=== PATIENT | female | born 2000 | race Caucasian/White ===

== ENCOUNTER 2022-07-01 15:19 | Inpatient (IN) | payer OTHER, MEDICAID, SELFPAY ==
[2022-07-01 14:00] VITALS: BP 118/78; PULSE 97; RESP 18; TEMP 36.9; O2SAT 99
[2022-07-01 15:43] VITALS: BMI 33.3
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
[2022-07-01] MEDS: OLANZapine 5 mg ODT PO (16:49)
--- NOTE | 2022-07-01 16:49 | PC.NURSE ---
PRN ZYPREXA ZYDIS 5 MG GIVEN PO PER PT C/O STATED ANXIETY/AGITATION...NEW ADMIT, WITHDRAWN
[2022-07-01] MEDS: nicotine 2 mg Gum BUCCAL (18:07)
[2022-07-01] MEDS: acetaminophen 325 mg Tablet 650 MG PO (18:39)
[2022-07-01 19:55] VITALS: BP 113/70; PULSE 88; RESP 15; TEMP 36.6; O2SAT 99
[2022-07-01] MEDS: BuSPIRONE 10 mg Tablet PO (20:54)
[2022-07-02 05:47] VITALS: BP 103/66; PULSE 83; RESP 16; TEMP 36.6; O2SAT 96
[2022-07-02] MEDS: nicotine 21 mg Patch 1 PATCH TRANSDERMA (08:32)
[2022-07-02] MEDS: topiramate 100 mg Tablet PO (08:34)
[2022-07-02] MEDS: pantoprazole DR 40 mg Tablet PO (08:34)
[2022-07-02] MEDS: ARIPiprazole 10 mg Tablet 15 MG PO (08:34)
[2022-07-02] MEDS: fluoxetine 20 mg Capsule 40 MG PO (08:34)
[2022-07-02] MEDS: cetirizine 10 mg Tablet PO (08:34)
[2022-07-02] MEDS: BuSPIRONE 10 mg Tablet PO ×3 (08:34→21:36)
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
[2022-07-02] MEDS: fluoxetine 20 mg Capsule PO (12:55)
[2022-07-02 14:00] VITALS: BP 120/71; PULSE 96; RESP 18; TEMP 36.6; O2SAT 97
[2022-07-02] MEDS: acetaminophen 325 mg Tablet 650 MG PO (15:08)
[2022-07-02] MEDS: blistex lip oint 7 gm Tube 1 APPLIC TOPICAL (16:34)
[2022-07-02] MEDS: hyDROXYzine 25 mg Capsule 50 MG PO (16:55)
--- NOTE | 2022-07-02 16:56 | PC.NURSE ---
PRN VISTARIL 50 MG GIVEN PO PER PT C/O STATED ANXIETY, ALTHOUGH PT IS UP SMILING AND CONVERSING IN A CALM MANNER WITH STAFF
[2022-07-02 19:45] VITALS: BP 118/84; PULSE 102; RESP 18; TEMP 36.8; O2SAT 98
[2022-07-02] MEDS: neomycin-poly-bacitracin oint 28 gm 1 APPLIC TOPICAL (22:44)
[2022-07-03 06:00] VITALS: BP 124/81; PULSE 97; RESP 16; TEMP 36.6; O2SAT 98
--- NOTE | 2022-07-03 09:45 | PC.NURSE ---
UP IN ROOM. DENIES HI AND AVH AT THIS TIME. PT CONTINUES TO ENDORSE SUICIADAL THOUGHTS THAT ARE PASSING IN NATURE WTIH NO PLAN. PT WAS CONTRACTED FOR SAFETY. DENIES PAIN. CONTINUES TO REPORT ANXIETY. MED NURSE INFORMED TO GIVE ZYDIS. ALL QUESTIONS ANSWERED AND SUPPORT VOICED.
[2022-07-03] MEDS: ARIPiprazole 10 mg Tablet 15 MG PO (10:01)
[2022-07-03] MEDS: OLANZapine 5 mg ODT PO ×2 (10:02→13:50)
[2022-07-03] MEDS: topiramate 100 mg Tablet PO (10:02)
[2022-07-03] MEDS: fluoxetine 20 mg Capsule 60 MG PO (10:03)
[2022-07-03] MEDS: pantoprazole DR 40 mg Tablet PO (10:03)
[2022-07-03] MEDS: cetirizine 10 mg Tablet PO (10:03)
[2022-07-03] MEDS: BuSPIRONE 10 mg Tablet PO ×3 (10:04→20:18)
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
--- NOTE | 2022-07-03 11:24 | PC.NURSE ---
NEW ORDER NEW ORDERS RECEIVED TO INCREASE ABILIFY TO 20 MG PO DAILY. ORDERS PLACED PT WAS EDUCATED ON DOSE INCREASE. PT VERBALIZES UNDERSTANDING.
[2022-07-03] MEDS: acetaminophen 325 mg Tablet 650 MG PO (12:00)
[2022-07-03] MEDS: hyDROXYzine 25 mg Capsule 50 MG PO (13:50)
[2022-07-03 14:00] VITALS: BP 134/93; PULSE 102; RESP 18; TEMP 36.8; O2SAT 98
[2022-07-03] MEDS: nicotine 2 mg Gum BUCCAL (15:34)
[2022-07-03 22:00] VITALS: RESP 17
[2022-07-04 06:00] VITALS: BP 112/80; PULSE 122; RESP 16; O2SAT 98
[2022-07-04] MEDS: nicotine 4 mg lozenge MUCOUS MEM ×4 (06:29→19:06)
[2022-07-04] MEDS: fluoxetine 20 mg Capsule 60 MG PO (09:42)
[2022-07-04] MEDS: ARIPiprazole 10 mg Tablet 20 MG PO (09:42)
[2022-07-04] MEDS: BuSPIRONE 10 mg Tablet PO ×3 (09:42→19:56)
[2022-07-04] MEDS: acetaminophen 325 mg Tablet 650 MG PO (09:42)
[2022-07-04] MEDS: cetirizine 10 mg Tablet PO (09:43)
[2022-07-04] MEDS: pantoprazole DR 40 mg Tablet PO (09:43)
[2022-07-04] MEDS: topiramate 100 mg Tablet PO (09:43)
[2022-07-04 14:00] VITALS: BP 113/81; PULSE 107; RESP 17; TEMP 36.7; O2SAT 97
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
[2022-07-04] MEDS: nicotine 2 mg Gum BUCCAL (15:15)
[2022-07-04] MEDS: OLANZapine 5 mg ODT PO (15:21)
[2022-07-04] MEDS: hyDROXYzine 25 mg Capsule 50 MG PO (15:22)
[2022-07-04 20:22] VITALS: BP 127/83; PULSE 98; RESP 18; TEMP 36.6; O2SAT 97
[2022-07-05] MEDS: nicotine 4 mg lozenge MUCOUS MEM ×4 (05:08→21:42)
[2022-07-05 06:00] VITALS: BP 122/84; PULSE 81; RESP 18; TEMP 36.8; O2SAT 97
[2022-07-05] MEDS: topiramate 100 mg Tablet PO (08:12)
[2022-07-05] MEDS: pantoprazole DR 40 mg Tablet PO (08:12)
[2022-07-05] MEDS: ARIPiprazole 10 mg Tablet 20 MG PO (08:12)
[2022-07-05] MEDS: BuSPIRONE 10 mg Tablet PO ×3 (08:13→19:27)
[2022-07-05] MEDS: fluoxetine 20 mg Capsule 60 MG PO (08:13)
[2022-07-05] MEDS: cetirizine 10 mg Tablet PO (08:13)
[2022-07-05] MEDS: ondansetron 4 MG Tablet PO (12:47)
--- NOTE | 2022-07-05 12:48 | PC.NURSE ---
prN ZOFRE FOR NAUSEA WILL CONTINUE TO MONITOR
[2022-07-05 13:49] VITALS: BP 133/82; PULSE 93; RESP 20; TEMP 36.7; O2SAT 96
[2022-07-05] MEDS: nicotine 2 mg Gum BUCCAL (15:49)
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
[2022-07-05 20:28] VITALS: BP 105/67; PULSE 78; RESP 18; TEMP 36.7; O2SAT 99
[2022-07-06] MEDS: nicotine 4 mg lozenge MUCOUS MEM ×5 (04:26→20:36)
[2022-07-06 06:00] VITALS: BP 123/84; PULSE 97; RESP 18; TEMP 36.4; O2SAT 97
[2022-07-06] MEDS: ARIPiprazole 10 mg Tablet 20 MG PO (08:20)
[2022-07-06] MEDS: fluoxetine 20 mg Capsule 60 MG PO (08:20)
[2022-07-06] MEDS: pantoprazole DR 40 mg Tablet PO (08:20)
[2022-07-06] MEDS: BuSPIRONE 10 mg Tablet PO ×3 (08:20→20:00)
[2022-07-06] MEDS: cetirizine 10 mg Tablet PO (08:20)
[2022-07-06] MEDS: topiramate 100 mg Tablet PO (08:20)
--- NOTE | 2022-07-06 10:08 | PC.NURSE ---
PRN PT REQUESTED NICOTINE LOZENGE, IT WAS GIVEN AT 0820.
[2022-07-06] MEDS: hyDROXYzine 25 mg Capsule 50 MG PO (11:42)
[2022-07-06 14:00] VITALS: BP 108/65; PULSE 97; RESP 18; TEMP 36.6; O2SAT 98
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
[2022-07-06] MEDS: nicotine 2 mg Gum BUCCAL (18:39)
[2022-07-06 20:51] VITALS: BP 117/78; PULSE 92; RESP 18; TEMP 36.6; O2SAT 96
[2022-07-06] MEDS: trazodone 50 mg Tablet PO (21:09)
[2022-07-07 06:00] VITALS: BP 100/48; PULSE 88; RESP 16; TEMP 36.8; O2SAT 97
[2022-07-07] MEDS: nicotine 4 mg lozenge MUCOUS MEM ×2 (06:00→10:09)
[2022-07-07] MEDS: pantoprazole DR 40 mg Tablet PO (08:45)
[2022-07-07] MEDS: topiramate 100 mg Tablet PO (08:45)
[2022-07-07] MEDS: ARIPiprazole 10 mg Tablet 20 MG PO (08:45)
[2022-07-07] MEDS: fluoxetine 20 mg Capsule 60 MG PO (08:45)
[2022-07-07] MEDS: cetirizine 10 mg Tablet PO (08:45)
[2022-07-07] MEDS: BuSPIRONE 10 mg Tablet PO (08:46)
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
[2022-07-07 11:29] VITALS: BP 100/48; PULSE 88; RESP 16; TEMP 36.8; O2SAT 97
== END 2022-07-07 11:40 | disposition home or self-care (01) | DRG 918 ==
PROVIDERS: Admitting Provider Psychiatry & Neurology Psychiatry; Visit Provider Psychiatry & Neurology Psychiatry
DX: T43.592A Poisoning by other antipsychotics and neuroleptics, intentional self-harm, initial encounter (principal); R45.851 Suicidal ideations; F41.9 Anxiety disorder, unspecified; F31.9 Bipolar disorder, unspecified; F60.3 Borderline personality disorder; K21.9 Gastro-esophageal reflux disease without esophagitis; F43.10 Post-traumatic stress disorder, unspecified; Z91.51 Personal history of suicidal behavior
CPT/HCPCS: 97150; 97165; Q0162